=== PATIENT | female | born 1955 | race Caucasian/White ===

== ENCOUNTER 2020-10-08 10:24 | Emergency (ER) | payer MEDICARE ==
--- NOTE | 2020-10-08 11:01 | EDM.PDOC ---
ED HPI GENERAL MEDICAL PROBLEM - General Chief Complaint: General Stated Complaint: SHOULDER PAIN/NUMBNESS Time Seen by Provider: 10/08/20 10:55 Source of Information: Reports: Patient, RN History Limitations: Reports: No Limitations - History of Present Illness INITIAL COMMENTS - FREE TEXT/NARRATIVE: presents to ER with tingling down the left arm. She states that it has been bothering her for about 3 years. It starts in the scapula area and will go down the left arm tingling. No loss of strength. Today seemed to be worse and she became concerned. She states that she can change it and make it go away by position. No loss of strength noted. She denies any injury to the area. She is stressed as her recently . Onset: Gradual Duration: Intermittent Location: Reports: Upper Extremity, Left l shoulder Pain Score (Numeric/FACES): 6 - Related Data Allergies Allergy/AdvReac Type Severity Reaction Status Date / Time No Known Allergies Allergy Verified 10/08/20 10:36 Home Meds: Home Meds . [No Known Home Meds] 10/08/20 [History] Past Medical History - History Comment History Comment: see RN notes for past medical, surgical and family history Social & Family History - Family History Family Medical History: No Pertinent Family History - Tobacco Use Tobacco Use Status *Q: Never Tobacco User Second Hand Smoke Exposure: No - Caffeine Use Caffeine Use: Reports: None - Recreational Drug Use Recreational Drug Use: No ED ROS GENERAL - Review of Systems Review Of Systems: See Below Constitutional: Reports: No Symptoms HEENT: Reports: No Symptoms Respiratory: Reports: No Symptoms Cardiovascular: Reports: No Symptoms GI/Abdominal: Reports: No Symptoms Musculoskeletal: Reports: Shoulder Pain, Arm Pain Skin: Reports: No Symptoms ED EXAM, GENERAL - Physical Exam Exam: See Below Exam Limited By: No Limitations General Appearance: Alert, WD/WN, Mild Distress Eye Exam: Bilateral Eye: PERRL Ears: Normal External Exam, Normal Canal Nose: Normal Inspection Throat/Mouth: Normal Inspection, Normal Oropharynx Head: Atraumatic, Normocephalic Neck: Normal Inspection, Supple, Non-Tender, Full Range of Motion Respiratory/Chest: No Respiratory Distress, Lungs Clear, Normal Breath Sounds Cardiovascular: Normal Peripheral Pulses, Regular Rate, Rhythm, No Edema GI/Abdominal: Normal Bowel Sounds, Soft, Non-Tender Back Exam: Normal Inspection Extremities: Normal Inspection, Normal Range of Motion, Other (Has full ROM to the left arm. Good strength. Equal sensation noted bilaterally. With positioning the tingling has resolved. She has tenderness across the left scapula. No bruising noted.) Neurological: Alert, Oriented, CN II-XII Intact Psychiatric: Normal Affect, Normal Mood Skin Exam: Warm, Dry, Intact Course - Vital Signs Last Recorded V/S: Last Vital Signs Temp 97.4 F 10/08/20 10:32 Pulse 71 10/08/20 10:32 Resp 20 10/08/20 10:32 BP 158/74 H 10/08/20 11:51 Pulse Ox 98 10/08/20 10:32 - Orders/Labs/Meds Labs: Laboratory Tests 10/08/20 10/08/20 Range/Units 10:53 10:53 WBC 6.5 (4.0-11.0) 10^3/uL RBC 3.95 L (4.00-5.50) x10^6/uL Hgb 13.0 (12.0-16.0) g/dL Hct 37.3 (37.0-47.0) % MCV 94.4 (83.0-97.0) fL MCH 32.9 H (27.0-32.0) pg MCHC 34.9 (32.0-36.0) g/dL RDW Coeff of Aashish 13.0 (11.0-15.0) % Plt Count 241 (150-400) 10^3/uL Immature Gran % (Auto) 0.2 (0.0-4.9) % Neut % (Auto) 53.5 (41-71) % Lymph % (Auto) 34.8 (24-44) % [place] % (Auto) 9.9 (0-10) % Eos % (Auto) 1.1 (0-6) % Baso % (Auto) 0.5 (0-1) % Neut # (Auto) 3.47 (1.80-8.00) x10^3/uL Lymph # (Auto) 2.25 (0.60-5.00) 10^3/uL [place] # (Auto) 0.64 (0.00-1.50) 10^3/uL Eos # (Auto) 0.07 (0.00-1.50) 10^3/uL Baso # (Auto) 0.03 (0.00-0.50) 10^3/uL Immature Gran # (Auto) 0.01 (0.00-0.49) 10^3/uL Sodium 132 L (136-145) mEq/L Potassium 3.7 (3.5-5.0) mEq/L Chloride 96 L (98-106) mEq/L Carbon Dioxide 20 L (21-32) mmol/L BUN 16 (7-18) mg/dL Creatinine 0.9 (0.6-1.0) mg/dL Est Cr Clr Drug Dosing 62.47 mL/min Estimated GFR (MDRD) > 60 (>=60) mL/min Glucose 102 H (75-99) mg/dL Calcium 8.5 (8.4-10.1) mg/dL Magnesium 1.9 (1.8-2.4) mg/dL Total Bilirubin 0.6 (0.0-1.0) mg/dL AST 21 (15-37) U/L ALT 20 (12-78) U/L Alkaline Phosphatase 76 (46-116) U/L Troponin I < 0.017 (0.00-0.06) ng/mL Total Protein 6.9 (6.4-8.2) g/dL Albumin 3.8 (3.4-5.0) g/dL - Re-Assessments/Exams Free Text/Narrative Re-Assessment/Exam: 10/08/20 14:45 Tingling is gone at this time. will send to PT for therapy and see if that will relieve her tingling Departure - Departure Time of Disposition: 11:35 Disposition: Home, Self-Care 01 Condition: Good Clinical Impression: Muscle spasm of left shoulder - Discharge Information *PRESCRIPTION DRUG MONITORING PROGRAM REVIEWED*: Not Applicable *COPY OF PRESCRIPTION DRUG MONITORING REPORT IN PATIENT SUSAN: Not Applicable Referrals: Antonio Galarza MD [Primary Care Provider] - Forms: ED Department Discharge Additional Instructions: PT appt at 1:30 If not improving may need to have MRI in the future Recheck if symptoms change or do not improve Sepsis Event Note (ED) - Evaluation Sepsis Screening Result: No Definite Risk - Focused Exam Vital Signs: Vital Signs Temp Pulse Resp BP Pulse Ox 10/08/20 11:51 158/74 H 10/08/20 10:32 97.4 F 71 20 177/91 H 98 - Problem List & Annotations (1) Muscle spasm of left shoulder SNOMED Code(s): 109768014, 58525690, 268764668, 620857503 Code(s): M62.838 - OTHER MUSCLE SPASM Status: Acute - Problem List Review Problem List Initiated/Reviewed/Updated: Yes
[2020-10-08 11:11] LABS: CHLORIDE,CL 96 mEq/L (98-106); SODIUM,NA 132 mEq/L (136-145)
== END 2020-10-08 11:40 | disposition home or self-care (01) ==
LOC: CC.ED 10:24
DX: M62.838 Other muscle spasm (principal)
CPT/HCPCS: 36415; 80053; 83735; 84484; 85025; 93005; 93010; 99283